=== PATIENT | male | born 1955 | race Caucasian/White ===

== ENCOUNTER 2016-10-14 07:17 | Emergency (ER) | payer BC ==
[~2016-10-14] VITALS: Ht 180.3 cm; Wt 95.0 kg
[~2016-10-14 07:17] MED LIST: AMBI12.5 PO; CALC600T34 PO; CELE200 PO; EPIP0.3I IM; HYDR50TA94 PO; HYDROXYZINE; MAGN400T PO; OMEP20TA OR; PERC10TA27 PO; PRED20 PO; PREG75 PO; RANI300T PO; SOMA350T PO; VITA400C28 PO
[2016-10-14 07:26] VITALS: BP 115/69; PULSE 86; RESP 28; TEMP 101.4; O2SAT 94
[2016-10-14] MEDS ORDERED: SOMA350T PO (07:50)
[2016-10-14] MEDS ORDERED: ALBU1AER5 INH (07:50)
[2016-10-14] MEDS ORDERED: BETA0.056 TOPICAL (07:50)
[2016-10-14 07:51] VITALS: BP 115/69; PULSE 86; RESP 19; TEMP 101.4; O2SAT 94
[2016-10-14] MEDS ORDERED: MUPI2OIN TOPICAL (07:51)
[2016-10-14] MEDS ORDERED: FLUT50SP EACH NARE (07:51)
[2016-10-14] MEDS ORDERED: MAG-OX PO (07:51)
[2016-10-14] MEDS ORDERED: CELE200C PO (07:51)
[2016-10-14] MEDS ORDERED: TRAZ50TA12 PO (07:51)
[2016-10-14] MEDS ORDERED: OXYC1TAB36 PO (07:51)
[2016-10-14] MEDS ORDERED: HYDR50TA94 PO (07:51)
[2016-10-14] MEDS ORDERED: LYRI75CA PO (07:51)
[2016-10-14] MEDS ORDERED: OMEP20TA PO (07:51)
[2016-10-14] MEDS ORDERED: EPI PEN IM (07:51)
[2016-10-14] MEDS ORDERED: AZITHROMYCIN INJ 500 MG in SODIUM CHLOR 0.9% 250 ML INJ 250 ML IV STA (07:54)
[2016-10-14] MEDS ORDERED: SODIUM CHLOR 0.9% 1000 ML INJ 1,000 ML IV ONE ×3 (07:54)
[2016-10-14] MEDS ORDERED: cefTRIAXone INJ 2,000 MG in SODIUM CHLORIDE 0.9% INJ 100 ML IV STA (07:54)
[2016-10-14] MEDS ORDERED: ACETAMINOPHEN 325 MG TAB PO ONE (08:00)
[2016-10-14] MEDS ORDERED: IBUPROFEN 800 MG TAB PO ONE (08:00)
[2016-10-14 08:08] VITALS: O2SAT 98
[2016-10-14 08:20] LABS: AUTOMATED NEUTROPHIL # 7.3 TH/MM3 (1.8-7.7); BASOPHIL # 0.1 TH/MM3 (0-0.2); BASOPHIL % 0.8 % (0.0-2.0); HEMATOCRIT 37.8 % (39.0-51.0); HEMO FLAGS DIFF FINAL; LYMPH % 7.3 % (9.0-44.0); LYMPHOCYTE # 0.7 TH/MM3 (1.0-4.8); MEAN CELL VOLUME 81.6 FL (80.0-100.0); MEAN CORPUSCULAR HEMOGLOBIN 27.9 PG (27.0-34.0); MEAN CORPUSCULAR HGB CONC 34.2 % (32.0-36.0); MONO % 9.1 % (0.0-8.0); NEUT % 82.8 % (16.0-70.0); PLATELET COUNT 201 TH/MM3 (150-450); RED BLOOD COUNT 4.63 MIL/MM3 (4.50-5.90); RED CELL DISTRIBUTION WIDTH 13.7 % (11.6-17.2); WHITE BLOOD COUNT 8.9 TH/MM3 (4.0-11.0)
--- NOTE | 2016-10-14 08:21 | RADHPO ---
EXAM DATE/TIME: 10/14/2016 08:14 [place] COMPARISON: No previous studies available for comparison. INDICATIONS : Fever, cough. MEDICAL HISTORY : None. SURGICAL HISTORY : None. ENCOUNTER: Initial ACUITY: 4 - 6 days PAIN SCORE: 0/10 LOCATION: Bilateral chest FINDINGS: A single view of the chest demonstrates the lungs to be symmetrically aerated without evidence of mas s, infiltrate or effusion. The cardiomediastinal contours are unremarkable. Osseous structures are intact. CONCLUSION: No acute disease. Cj Crowell MD FACR on October 14, 2016 at 8:20 Board Certified Radiologist. This report was verified electronically.
[2016-10-14 08:27] LABS: CHLORIDE 105 MEQ/L (98-107); POTASSIUM 3.8 MEQ/L (3.5-5.1); SODIUM (NA) 140 MEQ/L (136-145)
[2016-10-14 08:31] LABS: ANION GAP 10 MEQ/L (5-15); BICARBONATE 24.8 MEQ/L (21.0-32.0); BLOOD UREA NITROGEN 15 MG/DL (7-18)
--- NOTE | 2016-10-14 08:32 | PD ---
HPI . Cough and fever Chief Complaint: Fever Time Seen by Provider: 07:52 Travel History International Travel<30 days: No Contact w/Intl Traveler<30days: No Traveled to known affect area: No History of Present Illness HPI Patient presents with cough and fever for the past 5 days. Symptoms became acutely worse last night. His fever increased. He began having purulent sputum production. He took 3 aspirin last night for his symptoms. Otherwise he has not tried anything at home for his symptoms. PFSH Past Medical History Asthma: Yes Blood Disorders: No Anxiety: No Cardiovascular Problems: No Diabetes: No Diminished Hearing: No Gastrointestinal Disorders: Yes GERD: Yes Implanted Vascular Access Dvce: No Kidney Stones: Yes Musculoskeletal: Yes (CHRONIC PAIN) Psychiatric: No Respiratory: No Tetanus Vaccination: > 5 Years Influenza Vaccination: No Past Surgical History Abdominal Surgery: Yes (HERNIA REPAIR) Neurologic Surgery: No Other Surgery: Yes (RT. LG. TOE RECONSTRUCTION/NECK ) Social History Alcohol Use: No Tobacco Use: No Substance Use: No Allergies-Medications (Allergen,Severity, Reaction): Coded Allergies: Bee Sting (Verified Allergy, Severe, Swelling, 10/14/16) Voltaren (Verified Allergy, Severe, 10/14/16) Reported Meds & Prescriptions Reported Meds & Active Scripts Active Reported [Mag-Ox] 400 Mg PO DAILY [Epi Pen] 1 IM DIRECTED PRN Mupirocin Topical (Mupirocin) 2 % Oint 1 Applic TOPICAL BID Trazodone (Trazodone HCl) 50 Mg Tab 50 Mg PO HS Lyrica (Pregabalin) 75 Mg Cap 75 Mg PO BID Oxycodone-Acetaminophen 10-325 mg Tab 1 Tab PO Q4HR Omeprazole 20 Mg Tab 20 Mg PO DAILY Hydroxyzine HCl 50 Mg Tab 50 Mg PO BID Fluticasone Nasal [place] 50 Mcg/Act Naspr 100 Mcg EACH NARE BID 50 mcg/spray Celebrex (Celecoxib) 200 Mg Cap 200 Mg PO DAILY Soma (Carisoprodol) 350 Mg Tab 350 Mg PO BID PRN Review of Systems Except as stated in HPI: all other systems reviewed are Neg General / Constitutional: Positive: Fever, Chills HENT: Positive: Headaches, Sore Throat, Rhinorrhea (he reports some purulent rhinorrhea) Cardiovascular: No: Chest Pain or Discomfort Respiratory: Positive: Cough, Shortness of Breath (minimal shortness of breath. ), No: Pleuritic Pain Gastrointestinal: No: Nausea, Vomiting, Diarrhea, Abdominal Pain Genitourinary: No: Urgency, Frequency, Dysuria Physical Exam Narrative GENERAL: Patient is lying on the stretcher with a mask on in no acute distress. SKIN: Warm and dry. HEAD: Atraumatic. Normocephalic. EYES: Pupils equal and round. ENT: No nasal bleeding or discharge. Mucous membranes pink and moist. Oropharynx had no erythema or exudate. There is no tonsillar morning. NECK: Trachea midline. Neck is supple with no cervical lymphadenopathy. CARDIOVASCULAR: Regular rate and rhythm. Heart sounds are normal. RESPIRATORY: No accessory muscle use. Rhonchi in the right base. He is able to speak in complete sentences without any respiratory difficulty. GASTROINTESTINAL: Abdomen soft, non-tender, nondistended. MUSCULOSKELETAL: No obvious deformities. No edema. NEUROLOGICAL: Awake and alert. No obvious cranial nerve deficits. Motor grossly within normal limits. Normal speech. PSYCHIATRIC: Appropriate mood and affect; insight and judgment normal. Data Data Last Documented VS Vital Signs Date Time Temp Pulse Resp B/P Pulse Ox O2 Delivery O2 Flow Rate FiO2 10/14/16 09:14 99.0 66 17 112/60 97 Room Air Orders Electrocardiogram (10/14/16 07:54) Complete Blood Count With Diff (10/14/16 07:54) Comprehensive Metabolic Panel (10/14/16 07:54) Lactic Acid Sepsis Protocol (10/14/16 07:54) Urinalysis - C+S If Indicated (10/14/16 07:54) Blood Culture (10/14/16 07:54) Chest, Single Ap (10/14/16 07:54) Blood Glucose (10/14/16 07:54) Ecg Monitoring (10/14/16 07:54) Iv Access Insert/Monitor (10/14/16 07:54) Oximetry (10/14/16 07:54) Oxygen Administration (10/14/16 07:54) Ceftriaxone Inj (Rocephin Inj) (10/14/16 07:54) Azithromycin Inj (Zithromax Inj) (10/14/16 07:54) Acetaminophen (Tylenol) (10/14/16 08:00) Ibuprofen (Motrin) (10/14/16 08:00) Sodium Chlor 0.9% 1000 Ml Inj (Ns 1000 M (10/14/16 07:54) Sodium Chlor 0.9% 1000 Ml Inj (Ns 1000 M (10/14/16 07:54) Sodium Chlor 0.9% 1000 Ml Inj (Ns 1000 M (10/14/16 07:54) Labs Laboratory Tests Test 10/14/16 08:00 White Blood Count 8.9 TH/MM3 Red Blood Count 4.63 MIL/MM3 Hemoglobin 12.9 GM/DL Hematocrit 37.8 % Mean Corpuscular Volume 81.6 FL Mean Corpuscular Hemoglobin 27.9 PG Mean Corpuscular Hemoglobin 34.2 % Concent Red Cell Distribution Width 13.7 % Platelet Count 201 TH/MM3 Mean Platelet Volume 7.4 FL Neutrophils (%) (Auto) 82.8 % Lymphocytes (%) (Auto) 7.3 % Monocytes (%) (Auto) 9.1 % Eosinophils (%) (Auto) 0.0 % Basophils (%) (Auto) 0.8 % Neutrophils # (Auto) 7.3 TH/MM3 Lymphocytes # (Auto) 0.7 TH/MM3 Monocytes # (Auto) 0.8 TH/MM3 Eosinophils # (Auto) 0.0 TH/MM3 Basophils # (Auto) 0.1 TH/MM3 CBC Comment DIFF FINAL Differential Comment Sodium Level 140 MEQ/L Potassium Level 3.8 MEQ/L Chloride Level 105 MEQ/L Carbon Dioxide Level 24.8 MEQ/L Anion Gap 10 MEQ/L Blood Urea Nitrogen 15 MG/DL Creatinine 0.99 MG/DL Estimat Glomerular Filtration 77 ML/MIN Rate Random Glucose 111 MG/DL Lactic Acid Level 0.7 mmol/L Calcium Level 8.2 MG/DL Total Bilirubin 0.2 MG/DL Aspartate Amino Transf 19 U/L (AST/SGOT) Alanine Aminotransferase 30 U/L (ALT/SGPT) Alkaline Phosphatase 133 U/L Total Protein 7.0 GM/DL Albumin 3.3 GM/DL MDM Medical Decision Making Medical Screen Exam Complete: Yes Emergency Medical Condition: Yes Medical Record Reviewed: Yes Interpretation(s) EKG shows a sinus rhythm with a rate of 80. No ST segment elevation or depression. EKG is unchanged from previous. Differential Diagnosis Differential diagnosis includes but is not limited to viral respiratory illness , bronchitis, pneumonia, allergies, CHF, asthma/COPD. Narrative Course Patient presents with productive cough and fever. He has rhonchi in the right base. He most likely has pneumonia. He will be given antibiotics empirically while awaiting his workup. Chest x-ray is negative to the radiologist's interpretation. Chest x-ray was independently viewed by me. 9:15 AM White count is normal at 8.9. Chemistries are unremarkable. Lactic acid is 0.7. This patient is having no respiratory difficulty. His workup has been unremarkable. He is stable for treatment at home. Sepsis Criteria SIRS Criteria (2 or more): Temp > 100.9 or < 96.8, RR > 20 or PaCO2 < 32 Sepsis Criteria (SIRS+source): Infect source susp/known Criteria Outcome: Meets SIRS criteria Diagnosis Primary Impression: Bronchitis Med/Other Pt SpecificInfo: Prescription(s) given Scripts Hydrocodone-Chlorpheniramine 12 HR Liq (Tussionex Pennkinetic Ext 12 HR Liq)10- 8 Mg/5 Ml Susp5 Ml PO Q12H PRN (cough) #60 ML Ref 0 Prov:Jazz Prakash MD 10/14/16 Azithromycin (Zithromax)250 Mg [id number] Mg PO DAILY #4 TAB Ref 0 Prov:Jazz Prakash MD 10/14/16 Disposition: 01 DISCHARGE HOME Condition: Stable Jazz Prakash MD Oct 14, 2016 08:31
[2016-10-14 08:34] LABS: ALT (GPT) 30 U/L (12-78); AST (GOT) 19 U/L (15-37); GLOMERULAR FILTRATION RATE 77 ML/MIN (>89)
[2016-10-14 08:36] LABS: TOTAL BILIRUBIN ADULT 0.2 MG/DL (0.2-1.0)
[2016-10-14 08:37] LABS: ALKALINE PHOSPHATASE 133 U/L (45-117)
[2016-10-14 09:14] VITALS: BP 112/60; PULSE 66; RESP 17; TEMP 99; O2SAT 97
[2016-10-14] MEDS ORDERED: TUSSSUS2 PO (10:05)
[2016-10-14] MEDS ORDERED: ZITH250T PO (10:05)
[2016-10-14 10:15] LABS: BLOOD, URINE NEG (NEG); GLUCOSE,URINE NEG (NEG); KETONE, URINE TRACE mg/dL (NEG); NITRITE,URINE NEG (NEG)
[2016-10-14 10:21] LABS: METHOD OF COLLECTION CATH; URINE COLOR YELLOW (YELLW/STRAW)
[2016-10-14 10:22] LABS: COMMENT (UR) CULT NOT INDICATED; CULTURE IF INDICATED CULT NOT INDICATED; RBC, URINE 0-3 /hpf (0-3); SQUAMOUS EPITHELIAL CELL URINE 0-5 /hpf (0-5); WBC, URINE 0-2 /hpf (0-5)
[2016-10-14 10:55] VITALS: BP 124/63; PULSE 65; RESP 14; O2SAT 97
--- NOTE | 2016-10-14 14:33 | EKG ---
Date Performed: 10/14/2016 Time Performed: 08:01:42 PTAGE: 61 years EKG: Sinus rhythm Normal ECG PREVIOUS TRACING : 06/08/2010 21.01 Since previous tracing, no significant change noted DOCTOR: Gavi Carballo Interpretating Date/Time 10/14/2016 14:24:34
[2016-10-15] MEDS ORDERED: MAGN400T2 PO (09:03)
== END 2016-10-14 10:55 | disposition home or self-care (01) ==
LOC: PHED 07:17
DX: J44.9 Chronic obstructive pulmonary disease, unspecified (principal); K21.9 Gastro-esophageal reflux disease without esophagitis; Z87.442 Personal history of urinary calculi
CPT/HCPCS: 71010; 80053; 81001; 83605; 85025; 87040; 93005; 96361; 96365; 96367; 99284; J0456; J0696; J7030; J7050